=== PATIENT | female | born 1995 | race Caucasian/White ===

== ENCOUNTER 2023-10-23 07:20 | Observation (INO) | payer BC ==
[2023-10-23 07:50] VITALS: BMI 39.9
[2023-10-23] MEDS ORDERED: Nitroglycerin 0.4 MG TAB (25 Tab Bottle) SL PRN (08:30)
[2023-10-23] MEDS ORDERED: Sodium Chloride 0.9% 1,000 ML IV SCH (08:45)
[2023-10-23] MEDS ORDERED: Aspirin Chewable 81 MG TAB PO SCH (09:00)
[2023-10-23] MEDS ORDERED: Escitalopram Oxalate 20 mg Tablet PO SCH (09:00)
[2023-10-23 09:18] LABS: Troponin I Less than 0.010 ng/mL (< 0.028)
[2023-10-23 09:39] VITALS: TEMP 98.1
[2023-10-23 11:09] VITALS: BP 108/60
[2023-10-23] MEDS ORDERED: Sertraline 100 MG TAB PO SCH (21:00)
== END 2023-10-23 13:32 | disposition home or self-care (01) ==
LOC: CSHTELE 07:20 → INTOOBSV 07:20
PROVIDERS: ADMIT Family Medicine; ATTEND Hospitalist
DX: R07.9 Chest pain, unspecified (principal); F17.290 Nicotine dependence, other tobacco product, uncomplicated; F41.9 Anxiety disorder, unspecified; F32.A Depression, unspecified; E66.01 Morbid (severe) obesity due to excess calories; Z68.41 Body mass index [BMI] 40.0-44.9, adult; Z88.5 Allergy status to narcotic agent; Z88.1 Allergy status to other antibiotic agents; Z79.899 Other long term (current) drug therapy
CPT/HCPCS: 36415; 93005; 93010; 93306; 96372; G0378; J1650; J7050